=== PATIENT | female | born 1995 | race Caucasian/White ===

== ENCOUNTER 2018-08-26 14:19 | Emergency (ER) | payer SELFPAY ==
[~2018-08-26] VITALS: Ht 167.6 cm; Wt 49.9 kg
[2018-08-26 14:24] VITALS: Ht 167.6 cm; Wt 49.9 kg
[2018-08-26 16:22] VITALS: BP 107/60
== END 2018-08-26 16:22 | disposition home or self-care (01) ==
LOC: ED 14:19
DX: R42 Dizziness and giddiness (principal); R11.2 Nausea with vomiting, unspecified
CPT/HCPCS: 82962

== ENCOUNTER 2019-08-04 19:33 | Emergency (ER) | payer OTHER, SELFPAY ==
[~2019-08-04] VITALS: Ht 157.5 cm; Wt 52.2 kg
[2019-08-04 19:39] VITALS: BP 99/68; Ht 157.5 cm; Wt 52.2 kg
== END 2019-08-04 21:35 | disposition home or self-care (01) ==
LOC: ED 19:33
DX: O26.892 Other specified pregnancy related conditions, second trimester (principal); M79.10 Myalgia, unspecified site; Z3A.24 24 weeks gestation of pregnancy; Z20.828 Contact with and (suspected) exposure to other viral communicable diseases

== ENCOUNTER 2019-10-06 12:22 | Emergency (ER) | payer OTHER ==
[~2019-10-06] VITALS: Ht 157.5 cm; Wt 56.7 kg
[2019-10-06 12:50] VITALS: BP 111/65; Ht 157.5 cm; Wt 56.7 kg
== END 2019-10-06 15:34 | disposition home or self-care (01) ==
LOC: ED 12:22
DX: Z76.0 Encounter for issue of repeat prescription (principal)

== ENCOUNTER 2019-12-30 02:16 | Emergency (ER) | payer OTHER ==
[~2019-12-30] VITALS: Ht 167.6 cm; Wt 59.0 kg
[2019-12-30 03:44] VITALS: Ht 167.6 cm; Wt 59.0 kg
[2019-12-30 04:40] LABS: BASOPHIL % 0.3 % (0-2); PLATELET COUNT 247 x10^3mcL (130-400); RED CELL DISTRIBUTION WIDTH 13.8 % (11.5-14.5)
[2019-12-30 05:07] LABS: CALCIUM 8.5 mg/dL (8.5-10.1); CARBON DIOXIDE 24.9 mmol/L (21-32); CHLORIDE SERUM 102 mmol/L (98-107); CREATININE SERUM 0.6 mg/dL (0.6-1.0); GFR1 > 60 mL/min; GLUCOSE SERUM 87 mg/dL (74-106); POTASSIUM SERUM 3.1 mmol/L (3.5-5.1); SODIUM SERUM 136 mmol/L (136-145)
[2019-12-30 05:14] LABS: ALBUMIN 3.6 g/dL (3.4-5.0); ALKALINE PHOSPHATASE 100 U/L (46-116); ALT/SGPT 20 U/L (14-59); AST/SGOT 23 U/L (15-37); BILIRUBIN TOTAL 0.44 mg/dL (0.20-1.00); CHOLESTEROL 242 mg/dL (<200); TOTAL PROTEIN, SERUM 6.9 g/dL (6.4-8.2)
[2019-12-30 10:31] VITALS: BP 102/68
== END 2019-12-30 10:31 | disposition home or self-care (01) ==
LOC: ED 02:16
PROVIDERS: Student in an Organized Health Care Education/Training Program
DX: O99.345 Other mental disorders complicating the puerperium (principal); F53.0 Postpartum depression
CPT/HCPCS: G0480